=== PATIENT | male | born 1990 | race African-American/Black ===

== ENCOUNTER 2019-01-12 16:19 | Emergency (ER) | payer MEDICAID ==
[~2019-01-12] VITALS: Ht 170.2 cm; Wt 64.9 kg
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
[2019-01-12 16:41] VITALS: BP 128/85
--- NOTE | 2019-01-12 17:49 | Diagnostic Imaging Report ---
EXAM: XR Left Hand Complete, 3 or More Views CLINICAL HISTORY: PAIN TECHNIQUE: Frontal, lateral and oblique views of the left hand. COMPARISON: No relevant prior studies available. FINDINGS: Bones/joints: No acute fracture. Soft tissues: No radiodense foreign body. IMPRESSION: No acute fracture.
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
[2019-01-12] MEDS ORDERED: TYLENOL EXTRA500 MG ORAL (17:52)
[2019-01-12] MEDS ORDERED: LIDODERM700 M1 TOPIC (17:52)
[2019-01-12] MEDS ORDERED: ROBAXIN-750750 MG PO (17:52)
[2019-01-12 18:18] VITALS: BP 121/76
--- NOTE | 2019-01-12 18:18 | NUR ---
ED Nurse Note: pt cleared to be d/c per ER provider, thumb spika applied, pt discharge and aftercare instruction provided w/ prescription, pt education done via discussion and handout, pt advised to follow up with pcp or return to ed if changes in condition, pt verbalized understanding and agrees with plan, vss, ambulatory w/ steady gait, left w/ all belongings. pt accompanied by girlfriend.
== END 2019-01-12 18:18 | disposition home or self-care (01) ==
LOC: EMR 16:59
DX: S16.1XXA Strain of muscle, fascia and tendon at neck level, initial encounter (principal); S06.0X1A Concussion with loss of consciousness of 30 minutes or less, initial encounter; M25.571 Pain in right ankle and joints of right foot; V89.2XXA Person injured in unspecified motor-vehicle accident, traffic, initial encounter
CPT/HCPCS: 99283

== ENCOUNTER 2019-01-21 11:24 | Emergency (ER) | payer MEDICAID ==
[~2019-01-21] VITALS: Ht 170.2 cm; Wt 63.5 kg
[~2019-01-21 11:24] MED LIST: LIDODERM700 M1 TOPIC; ROBAXIN-750750 MG PO; TYLENOL EXTRA500 MG ORAL
[2019-01-21 11:27] VITALS: BP 126/81
[2019-01-21] MEDS ORDERED: NKM (11:32)
--- NOTE | 2019-01-21 11:37 | NUR ---
ED Nurse Note: pt. went to ER 2 weeks ago with sore throat and was treated with amoxicillin, but it started to hurt again 4 days ago. AAO X4 and ambulatory.
[2019-01-21] MEDS ORDERED: IBUPROFEN600 MG ORAL (12:26)
[2019-01-21] MEDS ORDERED: ONDANSETRON ODT4 MG BC (12:26)
[2019-01-21] MEDS ORDERED: ROBAXIN-750750 MG PO (12:26)
[2019-01-21] MEDS ORDERED: LIDODERM700 M1 TOPIC (12:26)
[2019-01-21 12:30] VITALS: BP 134/78
--- NOTE | 2019-01-21 12:30 | NUR ---
ER DISCHARGE NOTE: Patient is cleared to be discharged per ERMD, pt is aox4, on room air, with stable vital signs. pt was given dc and prescription instructions, pt was able to verbalize understanding, pt id band removed. pt is able to ambulate with steady gait. pt took all belongings.
== END 2019-01-21 12:30 | disposition home or self-care (01) ==
LOC: EMR 11:40
DX: M25.532 Pain in left wrist (principal); M79.605 Pain in left leg; M54.9 Dorsalgia, unspecified
CPT/HCPCS: 99282